=== PATIENT | female | born 1975 | race African-American/Black ===

== ENCOUNTER 2018-06-17 08:00 | Outpatient (CLI) | payer MEDICAID ==
[2012-01-02 10:24] VITALS: BMI 23.4
[2018-06-17] MEDS ORDERED: INDERAL 40 MG T40 MG PO (09:17)
[2018-06-17] MEDS ORDERED: NORVASC5 MG PO (09:18)
[2018-06-17] MEDS ORDERED: ULTRAM50 MG PO (09:19)
[2018-06-17] MEDS ORDERED: NEURONTIN 300300 MG PO (09:19)
[2018-06-17] MEDS ORDERED: KLONOPIN0.5 MG (09:20)
[2018-06-17] MEDS ORDERED: ZYPREXA10 MG PO (09:20)
== END 2018-06-17 08:01 | disposition home or self-care (01) ==
LOC: D.OPS 08:00 → EDSTATUS 06-18 09:00 → D.PAN 06-18 09:00
DX: S43.439A Superior glenoid labrum lesion of unspecified shoulder, initial encounter (principal); Z53.9 Procedure and treatment not carried out, unspecified reason; Z01.812 Encounter for preprocedural laboratory examination

== ENCOUNTER 2018-08-06 05:35 | Day surgery (SDC) | payer MEDICAID ==
[2018-08-04 14:21] LABS: HEMATOCRIT 41.4 % (36.0-48.0); HEMOGLOBIN 14.3 g/dL (12-16); MCH 28.4 pg (26.0-34.0); MCHC 34.5 g/dL (31.0-37.0); MCV 82.1 fL (80.0-100.0); MEAN PLATELET VOLUME 10.2 fL (7.4-10.4); RBC 5.04 10x6/uL (4.00-5.40); RDW 14.8 % (11.5-14.5); WBC 5.8 10x3/uL (4.8-10.8)
[~2018-08-06] VITALS: Ht 154.9 cm; Wt 56.2 kg
--- NOTE | ~2018-08-06 | OP ---
PATIENT NAME: CONSUELO BARNES MEDICAL RECORD: [id number] :73 LOCATION:[facility] ADMISSION DATE: SURGEON: DANILO ACEVEDO MD DATE OF OPERATION: 08/06/2018 PREOPERATIVE DIAGNOSES: 1. SLAP lesion of the left shoulder. 2. Impingement syndrome of the left shoulder. 3. Acromioclavicular arthritis of the left shoulder. 4. Biceps tendinitis of the left shoulder. POSTOPERATIVE DIAGNOSES: 1. SLAP lesion of the left shoulder. 2. Impingement syndrome of the left shoulder. 3. Acromioclavicular arthritis of the left shoulder. 4. Biceps tendinitis of the left shoulder. PROCEDURES: 1. Arthroscopic SLAP repair. 2. Arthroscopic distal clavicle excision - 1 cm. 3. Arthroscopic subacromial decompression, acromioplasty and bursectomy. SURGEON: Danilo Acevedo MD ANESTHESIA: General. INTRAOPERATIVE COMPLICATIONS: None. SUMMARY OF PATHOLOGIC FINDINGS: While the patient did have minimal amount of biceps tenodesis, I do feel like that labral repair will likely render labral repair with decompression and will render biceps tendon much better. OPERATIVE SUMMARY IN DETAIL: After obtaining the appropriate preoperative orthopedic surgery consent as well as anesthetic consultation, evaluation and clearance, the patient was brought to the operating room and placed on the operating table in supine position. After adequate general laryngeal mask airway was administered, the patient was placed in right lateral decubitus position. All pressure points were well padded to include down leg peroneal pad as well as axillary roll. The patient was held firmly to the operating table using the vacuum pack suction system. The patient's left upper extremity and shoulder were then prepped and draped in routine sterile fashion. The arm was held in the Ar[employer] traction boom at 30 degrees of flexion, 30 degrees of abduction with 10 pounds of traction laterally. Arthroscopy was established in the glenohumeral joint from the posterior portal. Anterior portal was established in the anterior safe interval. Diagnostic arthroscopy revealed the patient to have the bicipital labral lesion. Anterior superior aspect of the glenoid was prepared with reefing for reapproximation. After appropriate preparation had been made, labral tape was passed in a hitch fashion and then anchored into the labrum using a 2.7 PushLock from [employer]. This resulted in excellent anchorage. Given this patient's overall very small status, I felt like further anchorage was not necessary. Attention was then turned to the subacromial space. Please note that the biceps tendinitis was minimal and present, but I did not think it wanted a tenodesis. While on subacromial space, under direct arthroscopic visualization, the coracoacromial ligament was released along with the complete denudement of the acromion. Acromioplasty was OPERATIVE REPORT [id number] CONSUELO BARNES performed to the level of the AC joint where AC inferior osteophytes were noted. The distal clavicle was excised under direct arthroscopic visualization under separate arthroscopic portal. Having completed this, the residual of the subacromial bursa was taken down anteriorly, laterally, superiorly and posteriorly. Next, the arthroscopy portals were closed in routine interrupted fashion using 4-0 Prolene. Sterile dressings were applied. The patient was awakened and taken to recovery room in stable condition. All final needle and sponge counts were correct. TRANSINT:[id number] Voice Confirmation ID: [id number] DOCUMENT ID: [id number] CURTIS PAGE, DANILO BAEZA CC: [id number] DICTATION DATE: 08/06/18850 CREATIVE DIRECTOR: 08/06/18920 [facility] [address] [place] [address]
[~2018-08-06 05:35] MED LIST: INDERAL 40 MG T40 MG PO; KLONOPIN0.5 MG; LOSARTAN-HCTZ 100-12; NEURONTIN 300300 MG PO; NORVASC5 MG PO; ULTRAM50 MG PO; ZYPREXA10 MG PO
[2018-08-06 06:25] VITALS: BP 114/72; Ht 154.9 cm; Wt 56.2 kg
[2018-08-06 07:51] LABS: HCG URINE NEGATIVE (NEGATIVE)
[2018-08-06] MEDS ORDERED: HYDROCODON-ACE1 EA10 PO (08:47)
== END 2018-08-06 11:00 | disposition home or self-care (01) ==
LOC: D.OPS 05:35 → D.PAN 07:30 → D.OPS 11:00
PROVIDERS: Anesthesiology; ATTEND Orthopaedic Surgery
DX: S43.432A Superior glenoid labrum lesion of left shoulder, initial encounter (principal); M75.42 Impingement syndrome of left shoulder; M13.812 Other specified arthritis, left shoulder; M75.22 Bicipital tendinitis, left shoulder; Z01.812 Encounter for preprocedural laboratory examination

== ENCOUNTER 2018-10-19 11:13 | Day surgery (SDC) | payer MEDICAID ==
[~2018-10-19] VITALS: Ht 154.9 cm; Wt 56.2 kg
[~2018-10-19 11:13] MED LIST changes: +HYDROCODON-ACE1 EA10 PO
[2018-10-19 11:36] LABS: HEMATOCRIT 43.6 % (36.0-48.0); HEMOGLOBIN 15.1 g/dL (12-16); MCH 28.8 pg (26.0-34.0); MCHC 34.6 g/dL (31.0-37.0); MEAN PLATELET VOLUME 9.7 fL (7.4-10.4); RBC 5.25 10x6/uL (4.00-5.40); RDW 15.3 % (11.5-14.5); WBC 6.5 10x3/uL (4.8-10.8)
[2018-10-19 14:16] VITALS: BP 157/92; Ht 154.9 cm; Wt 56.2 kg
[2018-10-19] MEDS ORDERED: HYDROCODON-ACE1 EA10 PO (15:38)
--- NOTE | 2018-10-19 16:48 | NUR ---
9961 DC INSTS REVIEWED VOICED UNDERSTANDING RELEASED IN WC
--- NOTE | 2018-10-22 11:34 | OP ---
PATIENT NAME: CONSUELO WYMAN MEDICAL RECORD: [id number] :73 LOCATION:[facility] ADMISSION DATE: SURGEON: DANILO ACEVEDO MD DATE OF OPERATION: 10/19/2018 PREOPERATIVE DIAGNOSIS: Adhesive capsulitis of the left shoulder. POSTOPERATIVE DIAGNOSIS: Adhesive capsulitis of the left shoulder. PROCEDURE: Manipulation of the left shoulder under general anesthesia and a supraclavicular block. INTRAOPERATIVE COMPLICATIONS: None. SUMMARY OF PATHOLOGIC FINDINGS: The patient had an excellent release with the manipulation. OPERATIVE SUMMARY IN DETAIL: After obtaining the appropriate preoperative orthopedic surgery consent as well as anesthetic consultation, evaluation and clearance, after doing the appropriate timeout, the patient was given TIVA anesthesia. The scapula was stabilized. Manipulation was first carried out in full abduction followed by external rotation, internal rotation, forward flexion. Excellent release was achieved. The patient was able to have full overhead abduction and flexion as well as external rotation. The patient was taken back to outpatient in stable condition. TRANSINT:[id number] Voice Confirmation ID: [id number] DOCUMENT ID: [id number] DANILO ACEVEDO MD at 1134 CC: [id number] DICTATION DATE: 10/21/18 1047 [employer]LECT[employer] HARDWARE DESIGN ENGINEER: 10/21/18 1235 [facility] 10/19/18 [id number] [place] [address]
== END 2018-10-19 16:55 | disposition home or self-care (01) ==
LOC: D.OPS 11:13 → D.PAN 16:00 → D.OPS 16:55
PROVIDERS: Anesthesiology; ATTEND Orthopaedic Surgery
DX: M75.02 Adhesive capsulitis of left shoulder (principal)

== ENCOUNTER → 2020-07-14 11:06 | Outpatient (CLI) | payer MEDICAID ==
[2018-10-19 14:16] VITALS: BMI 23.4
== END | disposition home or self-care (01) ==
LOC: D.RAD 10:30
PROVIDERS: ATTEND Orthopaedic Surgery
DX: S43.431A Superior glenoid labrum lesion of right shoulder, initial encounter (principal)

== ENCOUNTER → 2020-08-18 11:49 | Outpatient (CLI) | payer MEDICAID ==
[2018-10-19 14:16] VITALS: BMI 23.4
== END | disposition home or self-care (01) ==
LOC: D.MRI 11:00
PROVIDERS: ATTEND Clinical Nurse Specialist Family Health
DX: M54.12 Radiculopathy, cervical region (principal)

== ENCOUNTER → 2020-09-15 09:54 | Outpatient (CLI) | payer MEDICAID ==
[2018-10-19 14:16] VITALS: BMI 23.4
== END | disposition home or self-care (01) ==
LOC: D.RAD 09-07 10:00
PROVIDERS: ATTEND Clinical Nurse Specialist Family Health
DX: S43.431A Superior glenoid labrum lesion of right shoulder, initial encounter (principal)

== ENCOUNTER 2020-11-10 07:02 | Day surgery (SDC) | payer MEDICAID ==
[2020-11-09 12:49] LABS: ANION GAP 15.5 mmol/L (8-16); CALCIUM 9.3 mg/dL (8.5-10.1); CARBON DIOXIDE 27.1 mmol/L (21.0-32.0); CREATININE - SERUM 1.2 mg/dL (0.6-1.3); POTASSIUM - SERUM 3.6 mmol/L (3.5-5.1)
[2020-11-09 13:59] LABS: BASOPHILS 1.1 % (0-2); EOSINOPHILS 0.1 % (0-7); HEMATOCRIT 46.5 % (36.0-48.0); HEMOGLOBIN 15.2 g/dL (12-16); LYMPHOCYTES 45.1 % (15-50); MCH 27.3 pg (26.0-34.0); MCHC 32.7 g/dL (31.0-37.0); MCV 83.5 fL (80.0-100.0); MEAN PLATELET VOLUME 8.1 fL (7.4-10.4); NEUTROPHILS 46.7 % (40-80); PLATELET COUNT 351 10x3/uL (130-400); RBC 5.57 10x6/uL (4.00-5.40); WBC 7.4 10x3/uL (4.8-10.8)
[~2020-11-10] VITALS: Ht 154.9 cm; Wt 68.0 kg
[2020-11-10 06:59] VITALS: BP 131/91; Ht 154.9 cm; Wt 68.0 kg
[~2020-11-10 07:02] MED LIST changes: -KLONOPIN0.5 MG; +KLONOPIN0.5 MG PO; +LISINOPRIL-HCT1 EAC7 PO; +SEROQUEL300 MG PO; +VRAYLAR3 MG PO
[2020-11-10 07:55] LABS: HCG URINE NEGATIVE (NEGATIVE)
--- NOTE | 2020-11-10 11:00 | NUR ---
ASSISTED PT TO GET DRESSED. NOTED SCANT AMOUNT OF BREAKTHROUGH BLEEDING TO TAPED AREA OF REINFORCEMENT DRESSING. INSTRUCTED PT SHE CAN REMOVED THE REINFORCEMENT DRESSING LATER IF NEEDED AND APPLY ANOTHER GAUZE DRESSING. SHE VOICED UNDERSTANDING. RIGHT ARM IMMOBILIZER IN PLACE. 1111- DISCHARGED VIA W/C, ACCOMPANIED BY VIKAS, TO POV WITH SPOUSE DRIVING. ALL BELONGINGS AND DC PACKET WITH PT.
--- NOTE | 2020-11-10 14:17 | OP ---
PATIENT NAME: CONSUELO WYMAN MEDICAL RECORD: [id number] :73 LOCATION:[facility] ADMISSION DATE: SURGEON: MCKAY LOWE DO DATE OF OPERATION: 11/10/2020 PROCEDURE PERFORMED: Right shoulder arthroscopy with rotator cuff repair, distal clavicle excision, subacromial decompression, acromioplasty, biceps tenodesis, and labral debridement. PREOPERATIVE DIAGNOSES: Right shoulder partial thickness rotator cuff tear, bursal side, SLAP tear, acromioclavicular joint arthritis and subacromial impingement. POSTOPERATIVE DIAGNOSES: Right shoulder partial thickness rotator cuff tear, bursal side, SLAP tear, acromioclavicular joint arthritis and subacromial impingement. INDICATIONS: The patient is a 44-year-old female who has had right shoulder pain for quite some time. She had an MRI showing a SLAP tear, but she did complain of some weakness as well. I told her I would inspect the rotator cuff and if there were any signs of a tear I will put a Regeneten implant on it to regrow the tendon. She was okay with that. I told her I would also do a biceps tenodesis, distal clavicle excision and subacromial decompression with acromioplasty to help her with her pain. She is aware of that and aware of the risks of this including infection, bleeding, damage to nerves or vessels, need for further surgery, continued pain, arthrofibrosis of the shoulder, frozen shoulder syndrome and even and she signed the consent. SURGEON: Mckay Lowe D.O. DESCRIPTION OF PROCEDURE: The patient was blocked by anesthesia in preoperative area and taken to the operative suite, laid in left lateral decubitus position, right shoulder up. Given 900 mg clindamycin and sedated and LMA was placed. The right shoulder was then prepped and draped in sterile fashion. Timeout was performed. Everyone was in agreement with the correct side, site, patient, and procedure. We then began by inflating through an 18-gauge spinal needle put a posterior hole or inserted into the shoulder joint inflated with 60 mL of normal saline. I then removed that, used 11-blade scalpel to establish a posterior portal, entered the trocar into the joint, fluid then rushed out indicating I was indeed in the joint. I then put the camera in and established an anterior portal using spinal needle and 11-blade scalpel. Trocar brought in. She had a severe SLAP tear, type 3. I then brought in a burner and did a biceps tenotomy at that point and a labral debridement with the coag inspected. The subscapularis was in good repair. The supraspinatus on the articular side did not appear to have a tear. The infraspinatus was in good shape. There was nothing in the inferior gutter and the shoulder joint was good. I then went into the subacromial space, established a lateral portal using spinal needle and 11-blade scalpel. Trocar was then brought in. I then saw the bursal side of the supraspinatus. She did have a partial thickness tear on the bursal side. I then did a subacromial decompression with acromioplasty and then to the anterior portal, a distal clavicle excision, open up the AC joint to approximately 7 mm. I then did a bursectomy. Marked a bursal-sided tear with an 18-gauge spinal needle, removed the scope and extended the lateral portal with a 15 blade scalpel. I made a careful dissection down to remove the bursa. I then stapled the Regeneten implant on the bursal-sided partial thickness tear of the OPERATIVE REPORT [id number] CONSUELO WYMAN supraspinatus. We then went to the anterior humerus, made a small incision and carefully dissected down to the long head of the biceps tendon and retrieved it and put a unicortical hole using a 2.9 JuggerLoc and cinched it down through the loop of the JuggerLoc anchor and then cut the excess suture and sutured back through the long head of the biceps tendon twice and tied it down. We then cut the excess tendon and sutured. I then irrigated. Shaun Burnham, certified personal chef closed the open site with 2-0 Vicryl in interrupted fashion, 4-0 Monocryl ran on the skin, 4-0 Monocryl inverted fashion on the portal sites and then placed Dermabond glue on all of them. She was then dressed with Telfa and Tegaderm. Awakened, put in a sling, taken to recovery in stable condition. BLOOD LOSS: Minimal. COMPLICATIONS: None. TRANSINT:[id number] Voice Confirmation ID: [id number] DOCUMENT ID: [id number] MCKAY LOWE DO at 1417 CC: [id number] DICTATION DATE: 11/10/20 1033 NNP: 11/10/20 1204 [facility] 11/10/20 [id number] [place] [id number]
== END 2020-11-10 11:11 | disposition home or self-care (01) ==
LOC: D.OPS 07:02
PROVIDERS: Anesthesiology; ATTEND Orthopaedic Surgery
DX: M75.101 Unspecified rotator cuff tear or rupture of right shoulder, not specified as traumatic (principal); S43.431A Superior glenoid labrum lesion of right shoulder, initial encounter; M13.811 Other specified arthritis, right shoulder; M75.41 Impingement syndrome of right shoulder; M25.511 Pain in right shoulder